=== PATIENT | female | born 1985 | race African-American/Black ===

== ENCOUNTER 2017-03-04 02:15 | Emergency (ER) | payer OTHER ==
[2017-03-04 04:37] VITALS: BP 127/74
== END 2017-03-04 04:37 | disposition home or self-care (01) ==
LOC: ED 02:15
DX: M43.6 Torticollis (principal); G89.29 Other chronic pain; Z88.0 Allergy status to penicillin
CPT/HCPCS: J1170; J1200; J1885; Q0162

== ENCOUNTER 2018-03-12 13:25 | Emergency (ER) | payer OTHER ==
[~2018-03-12] VITALS: Ht 170.2 cm; Wt 64.0 kg
[2018-03-12 13:29] VITALS: BP 136/85; Ht 170.2 cm; Wt 64.0 kg
== END 2018-03-12 14:43 | disposition home or self-care (01) ==
LOC: ED 13:25
DX: H10.89 Other conjunctivitis (principal); Z88.0 Allergy status to penicillin

== ENCOUNTER 2018-03-25 22:03 | Emergency (ER) | payer OTHER ==
[~2018-03-25] VITALS: Ht 170.2 cm; Wt 65.8 kg
[2018-03-25 22:08] VITALS: Ht 170.2 cm; Wt 65.8 kg
[2018-03-25 23:02] LABS: BASOPHIL % 0.9 % (0-2); PLATELET COUNT 247 x10^3mcL (130-400)
[2018-03-25 23:13] LABS: CALCIUM 8.6 mg/dL (8.5-10.1); CARBON DIOXIDE 33.5 mmol/L (21-32); CHLORIDE SERUM 107 mmol/L (98-107); CREATININE SERUM 0.9 mg/dL (0.6-1.0); GFR1 > 60 mL/min; GLUCOSE SERUM 100 mg/dL (74-106); POTASSIUM SERUM 3.9 mmol/L (3.5-5.1); SODIUM SERUM 143 mmol/L (136-145)
[2018-03-25 23:17] LABS: ALBUMIN 3.4 g/dL (3.4-5.0); ALKALINE PHOSPHATASE 61 U/L (46-116); ALT/SGPT 31 U/L (14-59); AST/SGOT 20 U/L (15-37); BILIRUBIN TOTAL 0.4 mg/dL (0.20-1.00); LIPASE 86 IU/L (73-393); TOTAL PROTEIN, SERUM 6.6 g/dL (6.4-8.2)
[2018-03-25 23:35] VITALS: BP 119/58
== END 2018-03-25 23:56 | disposition home or self-care (01) ==
LOC: ED 22:03
PROVIDERS: Emergency Medicine
DX: K59.00 Constipation, unspecified (principal); Z88.0 Allergy status to penicillin
CPT/HCPCS: 36415; J1885; Q0162

== ENCOUNTER 2019-02-15 07:51 | Emergency (ER) | payer OTHER ==
[~2019-02-15] VITALS: Ht 170.2 cm; Wt 67.4 kg
[2019-02-15 07:56] VITALS: BP 126/63; Ht 170.2 cm; Wt 67.4 kg
== END 2019-02-15 08:24 | disposition home or self-care (01) ==
LOC: ED 07:51
DX: H10.33 Unspecified acute conjunctivitis, bilateral (principal); J30.9 Allergic rhinitis, unspecified; Z88.0 Allergy status to penicillin

== ENCOUNTER 2019-02-26 08:28 | Emergency (ER) | payer OTHER ==
[~2019-02-26] VITALS: Ht 170.2 cm; Wt 68.1 kg
[2019-02-26 08:33] VITALS: Ht 170.2 cm; Wt 68.1 kg
[2019-02-26 10:19] VITALS: BP 114/76
== END 2019-02-26 10:19 | disposition home or self-care (01) ==
LOC: ED 08:28
DX: M54.5 Low back pain (principal); Z88.0 Allergy status to penicillin
CPT/HCPCS: J1885

== ENCOUNTER 2019-02-28 10:37 | Emergency (ER) | payer OTHER ==
[~2019-02-28] VITALS: Ht 170.2 cm; Wt 68.9 kg
[2019-02-28 10:50] VITALS: Ht 170.2 cm; Wt 68.9 kg
[2019-02-28 15:17] VITALS: BP 133/69
== END 2019-02-28 15:17 | disposition home or self-care (01) ==
LOC: ED 10:37
DX: M54.6 Pain in thoracic spine (principal); R10.9 Unspecified abdominal pain; Z88.0 Allergy status to penicillin; Z87.442 Personal history of urinary calculi; X58.XXXA Exposure to other specified factors, initial encounter; Y93.43 Activity, gymnastics; Y92.39 Other specified sports and athletic area as the place of occurrence of the external cause; Y99.9 Unspecified external cause status
CPT/HCPCS: Q0092